=== PATIENT | male | born 1985 | race Caucasian/White ===

== ENCOUNTER 2017-10-31 02:54 | Emergency (ER) | payer OTHER ==
[~2017-10-31] VITALS: Ht 170.2 cm; Wt 77.3 kg
[2017-10-31 02:58] VITALS: TEMP 97.7
[2017-10-31] MEDS ORDERED: STERIOD (03:02)
[2017-10-31 03:56] VITALS: BP 141/76; PULSE 82
== END 2017-10-31 03:56 | disposition home or self-care (01) ==
LOC: COL.ER 02:54
DX: L72.0 Epidermal cyst (principal); Z87.39 Personal history of other diseases of the musculoskeletal system and connective tissue